=== PATIENT | female | born 2000 | race Caucasian/White ===

== ENCOUNTER → 2019-03-29 | Outpatient (CLI) | payer OTHER ==
[~2019-03-29] MED LIST: ACET-168 PO; CODE-54 PO
--- NOTE | 2019-03-29 10:56 | Diagnostic Imaging Report ---
INDICATION: Injury of the right hand at work. TIME OF EXAM: 9:21 AM 3 views of the right hand were obtained. FINDINGS: Distal radius and ulna appear to be intact. The carpus is unremarkable. Metacarpals and phalanges are intact. No fractures are seen. IMPRESSION: No acute bony abnormality is detected. Dictated by: Dictated on workstation # [id number]
== END ==
LOC: RAD 09:04
PROVIDERS: ATTEND Nurse Practitioner Primary Care
DX: S69.91XA Unspecified injury of right wrist, hand and finger(s), initial encounter (principal); Y99.0 Civilian activity done for income or pay
CPT/HCPCS: 73130

== ENCOUNTER 2022-06-28 05:31 | Outpatient (CLI) | payer BC ==
[~2022-06-28] VITALS: Ht 160.2 cm; Wt 88.6 kg
[2022-06-28] MEDS ORDERED: SPIR50TA PO (15:37)
[2022-06-28] MEDS ORDERED: MONT10TA21 PO (15:37)
[2022-06-28] MEDS ORDERED: NORE-93 PO (15:37)
== END 2022-06-28 15:39 | disposition home or self-care (01) ==
LOC: PREOP 05:31
PROVIDERS: ATTEND Otolaryngology Otolaryngology/Facial Plastic Surgery
DX: Z01.818 Encounter for other preprocedural examination (principal)

== ENCOUNTER 2022-07-05 07:48 | Day surgery (SDC) | payer BC ==
[~2022-07-05] VITALS: Ht 160 cm; Wt 88.6 kg
[2022-07-05] VITALS (11 sets, daily range): BP systolic 107–141; BP diastolic 74–91
[~2022-07-05 07:48] MED LIST changes: +MONT10TA21 PO; +NORE-93 PO; +SPIR50TA PO
[2022-07-05] MEDS ORDERED: NS IV 500 ML 500 ML IV PRN (08:30)
[2022-07-05 09:01] LABS: BASOPHILS % (AUTO) 1 % (0-10); EOSINOPHILS # (AUTO) 0.1 10^3/uL (0.0-0.3); EOSINOPHILS % (AUTO) 2 % (0-10); HEMATOCRIT 40 % (35-52); HEMOGLOBIN 13.3 g/dL (11.5-16.0); LYMPHOCYTES # (AUTO) 2.1 10^3/uL (1.0-4.0); LYMPHOCYTES % (AUTO) 34 % (12-44); MEAN CORPUSCULAR HEMOGLOBIN 30 pg (25-34); MEAN CORPUSCULAR HGB CONC 34 g/dL (32-36); MEAN CORPUSCULAR VOLUME 89 fL (80-99); MONOCYTES # (AUTO) 0.6 10^3/uL (0.0-1.0); MONOCYTES % (AUTO) 10 % (0-12); NEUTROPHILS # (AUTO) 3.3 10^3/uL (1.8-7.8); NEUTROPHILS % (AUTO) 54 % (42-75); PLATELET COUNT 257 10^3/uL (130-400); WHITE BLOOD COUNT 6.1 10^3/uL (4.3-11.0)
[2022-07-05] MEDS ORDERED: LACTATED RINGERS 1,000 ML IV PRN (10:00)
--- NOTE | 2022-07-05 10:56 | Progress Note-Pre Operative ---
Pre-Operative Progress Note Date of Available H&P: Jul 05, 2022 Date H&P Reviewed: Jul 05, 2022 Time H&P Reviewed: 10:45 History & Physical: H&P Reviewed, Patient Examed, No changes noted Changes from last HP none Pre-Operative Diagnosis: Chronic Tonsillitis SAMARIA العلي MD Jul 05, 2022 10:56
--- NOTE | 2022-07-05 10:56 | Progress Note-Post Operative ---
Post-Operative Progess Note Surgeon (s)/Director Occupational (s) Surgeon SAMARIA العلي MD Director Occupational n/a Pre-Operative Diagnosis Chronic Tonsillitis Post-Operative Diagnosis same Post-Op Procedure Note Date of Procedure: Jul 05, 2022 Name of Procedure Performed: Tonsillectomy Description & Findings Description and Findings: n/a Anesthesia Type get Estimated Blood Loss minimal Packing none. Specimen(s) collected/removed tonsils SAMARIA العلي MD Jul 05, 2022 10:56
[2022-07-05] MEDS ORDERED: NS IV 1000 ML 1,000 ML IV SCH (11:00)
[2022-07-05] MEDS ORDERED: LIDOCAINE PF 2% 5 ML (XYLOCAINE) VIAL ONE (11:38)
[2022-07-05] MEDS ORDERED: MIDAZOLAM 2 MG/2 ML (VERSED) VIAL ONE (11:38)
[2022-07-05] MEDS ORDERED: ONDANSETRON 4 MG/2 ML (SDV) Z0FRAN ONE (11:38)
[2022-07-05] MEDS ORDERED: fentaNYL INJ 100 MCG/2 ML AMP ONE (11:38)
[2022-07-05] MEDS ORDERED: proPOfol 200 MG/20 ML (DIPRIVAN) VIAL IV ONE (11:38)
[2022-07-05] MEDS ORDERED: SEVOFLURANE (ULTANE) 15 ML INHAL SOLN ONE (11:38)
--- NOTE | 2022-07-05 12:14 | Anesthesia-General Post-Op ---
General Patient Condition Mental Status/LOC: Same as Preop Cardiovascular: Satisfactory Nausea/Vomiting: Absent Respiratory: Satisfactory Pain: Controlled Complications: Absent Post Op Complications Complications None Follow Up Care/Instructions Patient Instructions None needed. Anesthesia/Patient Condition Patient Condition Patient is doing well, no complaints, stable vital signs, no apparent adverse anesthesia problems. No complications reported per nursing. LOUISE CASTILLO CRNA Jul 05, 2022 12:13
[2022-07-05] MEDS ORDERED: morphine INJ 10 MG/ML 1ML (SYR OR VIAL) IVP ONE (12:15)
[2022-07-05] MEDS ORDERED: HYDROmorphone 2 MG/ML VIAL (DILAUDID) IV ONE (12:15)
[2022-07-05] MEDS ORDERED: ONDANSETRON 4 MG/2 ML (SDV) Z0FRAN IVP PRN (12:15)
[2022-07-05] MEDS ORDERED: MEPERIDINE (DEMEROL) INJ 50 MG/ML IVP ONE (12:15)
[2022-07-05] MEDS ORDERED: morphine INJ 10 MG/ML 1ML (SYR OR VIAL) ONE (12:19)
[2022-07-05] MEDS ORDERED: TRM50T PO (13:47)
[2022-07-05] MEDS ORDERED: DEXAINTSOL PO (13:47)
[2022-07-05] MEDS ORDERED: AZIT200S47 PO (13:47)
[2022-07-05] MEDS ORDERED: TETRACAINESUCKERS MT (13:47)
== END 2022-07-05 15:20 | disposition home or self-care (01) ==
LOC: SDC 07:48
PROVIDERS: ATTEND Otolaryngology Otolaryngology/Facial Plastic Surgery
DX: J35.01 Chronic tonsillitis (principal); A42.9 Actinomycosis, unspecified; J35.8 Other chronic diseases of tonsils and adenoids; E66.9 Obesity, unspecified; Z68.34 Body mass index [BMI] 34.0-34.9, adult
CPT/HCPCS: 36415; 84703; 85025; 87081; 88304

== ENCOUNTER 2022-11-11 08:24 | Outpatient (RCR) | payer BC ==
[2022-11-06 09:10] VITALS: BP 116/80
[2022-11-06] MEDS: IRON SUCROSE 200 MG/10 ML (VENOFER) VIAL IV SCH (09:12)
[2022-11-08] MEDS: IRON SUCROSE 200 MG/10 ML (VENOFER) VIAL IV SCH (10:47)
[2022-11-08 10:48] VITALS: BP 121/78
[~2022-11-11] VITALS: Ht 160 cm; Wt 82.7 kg
[~2022-11-11 08:24] MED LIST changes: +AZIT200S47 PO; +DEXAINTSOL PO; +MONT-47 PO; -MONT10TA21 PO; +TETRACAINESUCKERS MT; +TRM50T PO
[2022-11-11 08:30] VITALS: BP 117/79
[2022-11-11] MEDS ORDERED: IRON SUCROSE 200 MG/10 ML (VENOFER) VIAL IV SCH (09:00)
== END 2022-11-17 | disposition home or self-care (01) ==
LOC: SDC 08:24
PROVIDERS: ATTEND Internal Medicine
DX: E61.1 Iron deficiency (principal)
CPT/HCPCS: 96365